=== PATIENT | female | born 1985 | race Native Hawaiian/Other Pacific Islander ===

== ENCOUNTER 2016-06-06 12:53 | Outpatient (CLI) | payer OTHER | END 2016-06-06 19:17 | disposition home or self-care (01) | LOC: LABW 12:53 | DX: E03.9 Hypothyroidism, unspecified (principal) | CPT/HCPCS: 36415; 84439; 84443 ==

== ENCOUNTER 2019-08-31 06:40 | Outpatient (CLI) | payer OTHER | END 2019-08-31 22:22 | disposition home or self-care (01) | LOC: LAB 06:40 → LABW 06:40 | DX: E03.9 Hypothyroidism, unspecified (principal) | CPT/HCPCS: 36415; 82306; 84439; 84443 ==

== ENCOUNTER 2019-10-12 09:40 | Outpatient (CLI) | payer OTHER | END 2019-10-12 21:28 | disposition home or self-care (01) | LOC: LAB 09:40 | DX: R50.9 Fever, unspecified (principal) | CPT/HCPCS: 87635; G2023; U0002 ==

== ENCOUNTER 2020-01-11 08:42 | Outpatient (CLI) | payer OTHER | END 2020-01-11 20:22 | disposition home or self-care (01) | LOC: LABW 08:42 | DX: E03.9 Hypothyroidism, unspecified (principal) | CPT/HCPCS: 36415; 84439; 84443 ==

== ENCOUNTER 2021-02-23 08:25 | Outpatient (CLI) | payer OTHER ==
[~2021-02-23] VITALS: Ht 172.7 cm; Wt 98.4 kg
[2021-02-23 09:22] VITALS: BP 113/72; TEMP 98.2
== END 2021-02-23 19:31 | disposition home or self-care (01) ==
LOC: INF 08:25
PROVIDERS: ATTEND Family Medicine
DX: Z23 Encounter for immunization (principal); U07.1 COVID-19
CPT/HCPCS: 96365; M0244